=== PATIENT | male | born 1965 | race African-American/Black ===

== ENCOUNTER 2022-07-04 14:00 | Emergency (ER) | payer MEDICAID, OTHER ==
[~2022-07-04] VITALS: Ht 180.3 cm; Wt 79.0 kg
[~2022-07-04 14:00] MED LIST: OMEP20CA4 PO; VIC PO
[2022-07-04 22:30] LABS: CLARITY URINE CLEAR (CLEAR); COLOR URINE YELLOW (YELLOW); KETONES URINE NEGATIVE (NEGATIVE); LEUKOCYTE ESTERASE URINE NEGATIVE (NEGATIVE); NITRITE URINE NEGATIVE (NEGATIVE); OCCULT BLOOD URINE NEGATIVE (NEGATIVE); PH URINE 6.5 (4.5-8.0); PROTEIN URINE NEGATIVE (NEGATIVE); SPECIFIC GRAVITY URINE 1.021 (1.005-1.030); UROBILINOGEN URINE 0.2 E.U./dL (0.2-1.0)
[2022-07-04] MEDS ORDERED: ACETAMINOPHEN 500MG TABLET PO ONE (22:45)
[2022-07-04 22:55] VITALS: BP 144/94
== END 2022-07-04 23:01 | disposition home or self-care (01) ==
LOC: ER 14:00
DX: R33.9 Retention of urine, unspecified (principal); R30.0 Dysuria; F15.10 Other stimulant abuse, uncomplicated
CPT/HCPCS: 81003; 99283; A4315

== ENCOUNTER 2023-10-18 22:07 | Emergency (ER) | payer MEDICAID, OTHER ==
[~2023-10-18] VITALS: Ht 180.3 cm; Wt 78.0 kg
[2023-10-18 22:14] VITALS: O2SAT 99
[2023-10-18 23:19] LABS: BASOPHILS % 0.8 % (0.0-2.0); EOSINOPHILS % 3.5 % (0.0-5.0); HEMATOCRIT. 36.8 % (42.0-52.0); HEMOGLOBIN. 12.3 g/dL (14.0-18.0); MEAN CORPUSCULAR HGB CONC 33.5 g/dL (31.0-37.0); MEAN CORPUSCULAR VOLUME 89.6 fL (80.0-94.0); MEAN PLATELET VOLUME 7.6 fl (7.4-10.4); MONOCYTES % 8.5 % (2.0-8.0); NEUTROPHILS % 60.2 % (40.0-76.0); PLATELET 296 x1000/uL (130-400); RED CELL DISTRIBUTION WIDTH 13.9 % (11.6-14.6); WHITE BLOOD COUNT 7.2 x1000/uL (4.5-11.0)
[2023-10-18 23:29] LABS: INR 0.9; PROTHROMBIN TIME 10.1 sec (9.6-11.0)
[2023-10-18 23:43] LABS: ALANINE AMINOTRANSFERASE 16 IU/L (10-49); ALBUMIN 4.2 g/dL (3.2-4.8); ASPARTATE AMINOTRANSFERASE 20 IU/L (<34); BILIRUBIN TOTAL 0.3 mg/dL (0.1-1.0); CALCIUM 8.8 mg/dL (8.7-10.4); CARBON DIOXIDE 28 mEq/L (21-32); CHLORIDE 106 mEq/L (98-107); CREATININE 1.1 mg/dL (0.6-1.3); GLUCOSE 109 mg/dL (70-105); POTASSIUM 3.9 mEq/L (3.5-5.1); SODIUM 138 mEq/L (136-145); UREA NITROGEN BLOOD 14 mg/dL (9-23)
[2023-10-19] MEDS: TAMSULOSIN HCL 0.4MG SR CAPSULE PO ONE (00:25)
[2023-10-19] MEDS: IBUPROFEN 600MG TABLET PO ONE (00:26)
[2023-10-19] MEDS: ACETAMINOPHEN 325MG TABLET PO ONE (00:26)
[2023-10-19] MEDS ORDERED: TAMS-11 MT (01:23)
[2023-10-19] MEDS ORDERED: TOPUD MT (01:24)
[2023-10-19] MEDS ORDERED: PANT40SU MT (01:24)
[2023-10-19 01:58] VITALS: BP 112/62; PULSE 90; RESP 16; TEMP 97.3
== END 2023-10-19 02:01 | disposition home or self-care (01) ==
LOC: ER 22:07
DX: R33.9 Retention of urine, unspecified (principal); K29.70 Gastritis, unspecified, without bleeding; N40.0 Benign prostatic hyperplasia without lower urinary tract symptoms; F15.10 Other stimulant abuse, uncomplicated; Z79.899 Other long term (current) drug therapy
CPT/HCPCS: 36415; 80053; 85025; 99284